=== PATIENT | female | born 1945 | race African-American/Black ===

== ENCOUNTER 2018-07-26 05:25 | Day surgery (SDC) | payer OTHER ==
[~2018-07-26 05:25] MED LIST: ceFAZolin SODIUM 1 GM VIAL IVPB ONE
[2018-07-26 06:29] VITALS: BMI 31.1
[2018-07-26] MEDS ORDERED: fentaNYL CITRATE 250 MCG/5 ML VIAL ONE (07:29)
[2018-07-26] MEDS ORDERED: SUCCINYLCHOLINE CHLORIDE 200 MG/10 ML VIAL ONE (07:30)
[2018-07-26] MEDS ORDERED: ROCURONIUM BROMIDE 50 MG/5 ML VIAL ONE (07:30)
[2018-07-26] MEDS ORDERED: MIDAZOLAM HCL 2 MG/2 ML SINGLE DOSE VIAL ONE (07:30)
[2018-07-26] MEDS ORDERED: PROPOFOL 20 ML ONE (07:30)
[2018-07-26] MEDS ORDERED: LIDOCAINE HCL/PF 2% SDV 5ML VIAL ONE (07:32)
[2018-07-26] MEDS ORDERED: DEXAMETHASONE SOD PHOSPHATE 4 MG/1 ML VIAL ONE (07:32)
[2018-07-26] MEDS ORDERED: IBUPROFEN 400 MG TABLET (FP) PO PRN (08:38)
[2018-07-26] MEDS ORDERED: ACETAMINOPHEN 325 MG TABLET (FP) PO PRN (08:38)
--- NOTE | 2018-07-26 08:39 | HP ---
History & Physical Update - History History: No Change - Physical Physical: No Change - Assessment Assessment: No Change - Plan Plan: No Change (No change in HP)
--- NOTE | 2018-07-26 08:40 | OP ---
Operative Note - Note: Operative Date: 07/26/18 Pre-Operative Diagnosis: Submucosal myoma Operation: Hysteroscopic myomectomy. Suction DC Findings: large amount of fibroids removed from cavity Post-Operative Diagnosis: Same as Pre-op Surgeon: Brittni Blancas Anesthesia: General Estimated Blood Loss (mls): 30 Operative Report Dictated: Yes
[2018-07-26] MEDS ORDERED: ONDANSETRON 4 MG/2 ML VIAL IVPUSH PRN (08:53)
[2018-07-26] MEDS ORDERED: PROMETHAZINE HCL 25 MG/1 ML VIAL IVPUSH PRN (08:53)
[2018-07-26] MEDS ORDERED: LACTATED RINGERS SOLUTION 1,000 ML IV SCH (09:00)
[2018-07-26 11:21] VITALS: TEMP 97.6
[2018-07-26 12:17] VITALS: BP 144/84; PULSE 88
--- NOTE | 2018-07-26 19:45 | OP ---
DATE OF OPERATION: 07/26/2018 PREOPERATIVE DIAGNOSES: Submucosal myoma, postmenopausal bleeding. OPERATION: Hysteroscopic myomectomy, suction dilatation and curettage. FINDINGS: Large amount of fibroids from the endometrial cavity. POSTOPERATIVE DIAGNOSES: Submucosal myoma, postmenopausal bleeding. SURGEON: Brittni Blancas MD CASHIER AND WAITER/WAITRESS: None. ANESTHESIA: General. NURSE FLOATING LABOR GANG SUPERVISOR: Jonathan Arcos CRNA PROCEDURE: Patient was taken to the operating room, placed in dorsal lithotomy position, prepped and draped in the usual sterile fashion. Timeout was performed in accordance with hospital regulation. Speculum was placed in the vagina. Anterior lip of the cervix was grasped with a single-tooth tenaculum. Cervix was then dilated to accommodate the operative hysteroscope. Visualization revealed large amounts of submucosal myomas. Myomas were approximately 3-4 myomas in the endometrial cavity. Large amounts of cutting of the myoma were done by the operative hysteroscope. Suction D&C was done. This was repeated approximately 4 times, and large amounts of submucosal myoma, approximately 3-4 cm of myoma, were removed. Endometrial cavity still appeared to have some myomas in there, but procedure was stopped, and the deficit was about 200 mL, and estimated blood loss was 30 mL. All instruments were then removed. A tear was noted on the cervix; so, a 0 Vicryl suture was then used to close off the laceration of the cervix from the tenaculum. Patient had tolerated the procedure well, was taken to recovery room in stable condition. Count was noted to be correct. BRITTNI BLANCAS M.D. [id number]
--- NOTE | 2018-07-27 18:13 | PATH ---
Surgical Pathology Report Patient Name: MOOK TAPIA [facility]. Rec. #: [id number] /Age/Gender: 1945 (Age: 72) / F Account: [id number] Location: [facility] SURGICAL Taken: 07/26/2018 Received: 07/26/2018 Reported: 07/27/2018 Physicians: Brittni Blancas M.D. Specimen(s) Received FIBROID Clinical History Fibroid (myoma) Final Diagnosis FIBROID, EXCISION: FRAGMENTS OF SMOOTH MUSCLE BUNDLES, CONSISTENT WITH LEIOMYOMA. SEPARATE ENDOMETRIAL POLYPS. FEW FRAGMENTS OF ATROPHIC ENDOMETRIUM. Electronically Signed Miguel Zamora M.D. Gross Description Received in formalin labeled "fibroid," is a 9 g, 7.5 x 4.0 x 0.6 cm aggregate of merlos, firm to rubbery portions of tissue, consistent with morcellated fibroids. The specimen is entirely submitted in 8 cassettes. /07/26/2018 saudi/07/26/2018
== END 2018-07-26 12:19 | disposition home or self-care (01) ==
LOC: JASU-SURG 05:25
PROVIDERS: ATTEND Obstetrics & Gynecology
PROC: 0UB98ZZ Excision of Uterus, Via Natural or Artificial Opening Endoscopic (ICD-10-PCS; principal; 2018-07-26 08:00)
PROC: 0UDB7ZX Extraction of Endometrium, Via Natural or Artificial Opening, Diagnostic (ICD-10-PCS; 2018-07-26 08:00)
PROC: 0UJD8ZZ Inspection of Uterus and Cervix, Via Natural or Artificial Opening Endoscopic (ICD-10-PCS; 2018-07-26 08:00)
DX: N95.0 Postmenopausal bleeding (principal); D25.0 Submucous leiomyoma of uterus
CPT/HCPCS: 86850; 86900; 86901; 88305-TC; 94760

== ENCOUNTER 2020-01-30 04:49 | Day surgery (SDC) | payer OTHER ==
[2020-01-27 16:08] VITALS: BMI 29.5
[2020-01-30] MEDS ORDERED: IBUPROFEN 800 MG/8 ML IJ IVPB PRN ×2 (05:40→10:01)
--- NOTE | 2020-01-30 05:40 | HP ---
History & Physical Update - History History: No Change - Physical Physical: No Change - Assessment Assessment: No Change - Plan Plan: No Change (No change in HP)
[2020-01-30] MEDS ORDERED: PHENAZOPYRIDINE HCL 100 MG TABLET (FP) PO STA (05:45)
[2020-01-30] MEDS ORDERED: CEFAZOLIN 2 GM in DEXTROSE 5%-WATER 100 ML IVPB ONE (06:20)
[2020-01-30] MEDS ORDERED: PHENAZOPYRIDINE HCL 100 MG TABLET (FP) PO ONE (06:20)
[2020-01-30] MEDS ORDERED: ceFAZolin SODIUM 1 GM VIAL ONE ×3 (06:48→17:55)
[2020-01-30] MEDS ORDERED: MIDAZOLAM HCL 2 MG/2 ML SINGLE DOSE VIAL ONE ×3 (07:10→07:20)
[2020-01-30] MEDS ORDERED: LIDOCAINE HCL/PF 2% SDV 5ML VIAL ONE (07:20)
[2020-01-30] MEDS ORDERED: SUCCINYLCHOLINE CHLORIDE 200 MG/10 ML SYRINGE ONE (07:20)
[2020-01-30] MEDS ORDERED: fentaNYL CITRATE 250 MCG/5 ML VIAL ONE (07:20)
[2020-01-30] MEDS ORDERED: ROCURONIUM BROMIDE 50 MG/5 ML SYRINGE ONE (07:20)
[2020-01-30] MEDS ORDERED: PROPOFOL 20 ML ONE (07:20)
--- NOTE | 2020-01-30 07:47 | HP ---
Satellite H - Chief Complaint Chief Complaint: Leiomyomatous uterus. abdominal pain. vaginal relaxation. History of Present Illness: 74 yo with leiomyomatous uterus and abdominal pain who desires hystectomy. pt with vaginal relaxation History Source: Patient Limitations to Obtaining History: No Limitations - Past Medical History Allergies/Adverse Reactions: Allergies Allergy/AdvReac Type Severity Reaction Status Date / Time No Known Drug Allergies Allergy Verified 01/27/20 16:08 ...: No ...: 4 ...Para: 1 Additional Medical History: Thyroid goiter. elevated cholesterol. Hx herpes - Current Medications Current Medications: Home Medications Medication Instructions Recorded Atorvastatin Calcium [Lipitor] 20 mg PO DAILY 07/26/18 Valacyclovir HCl [Valtrex] 500 mg PO DAILY 07/26/18 Citalopram Hydrobromide [Celexa -] 10 mg PO DAILY 01/27/20 Satellite Physical Exam - Physical Examination Vital Signs: Vital Signs Period Temp Pulse Resp BP Sys/Judge Pulse Ox Last 24 Hr 98.2 F 75 20 153/61 98 General Appearance: Well Nourished, Well Developed, Obese ENT: Clear Lung: Clear to auscultation Heart: Regular rate & rhythm Breasts: Soft, Non-Tender Abdomen: Soft, No tenderness Extremities: No edema Pelvic Exam: Within normal limits External Genitalia, Within normal limits Vagina, Within normal limits Cervix, Within normal limits [place], Other Uterus (enlarged) Neurological: Intact, Alert, Oriented Satellite Impression/Plan - Impression/Plan Impression: Leiomyomatous Uterus. abdominal pain. vaginal relaxation Operative Procedure: Laparoscopic robotic hysterectomy. bilateral salpingectomy. perineoplasty. vaginoplasty Date to be Performed: 01/30/20
[2020-01-30] MEDS ORDERED: ceFAZolin SODIUM 1 GM VIAL IVPB ONE (08:09)
[2020-01-30] MEDS ORDERED: NEOSTIGMINE METHYLSULFATE 0.5 MG/ML - 10 ML MDV ONE (09:25)
[2020-01-30] MEDS ORDERED: GLYCOPYRROLATE 0.2 MG/1 ML VIAL ONE (09:26)
[2020-01-30] MEDS ORDERED: DOCUSATE SODIUM 100 MG CAPSULE (FP) PO PRN (10:01)
[2020-01-30] MEDS ORDERED: ONDANSETRON 4 MG/2 ML VIAL IVPUSH PRN (10:01)
[2020-01-30] MEDS ORDERED: oxyCODONE HCL 5 MG TABLET PO PRN (10:01)
[2020-01-30] MEDS ORDERED: BISACODYL 5 MG TABLET.DR (FP) PO PRN (10:01)
[2020-01-30] MEDS ORDERED: ACETAMINOPHEN 325 MG TABLET (FP) PO PRN (10:01)
[2020-01-30] MEDS ORDERED: SIMETHICONE 80 MG TAB.CHEW (FP) PO PRN (10:01)
[2020-01-30] MEDS ORDERED: LORazepam 2 MG TABLET PO PRN (10:06)
--- NOTE | 2020-01-30 10:34 | OP ---
Operative Note - Note: Operative Date: 01/30/20 Pre-Operative Diagnosis: Fibroid uterus Operation: robotic laproscopic total hysterectomy, bilateral salpingectomy, vaginalplasty, and perineoplasty Post-Operative Diagnosis: Same as Pre-op Surgeon: Brittni Blancas Mechanical Development Engineer: Magdiel Baerd Anesthesiologist/FLOWER CHENILLER: Jonathan Arcos Anesthesia: General Estimated Blood Loss (mls): 40 Operative Report Dictated: Yes
--- NOTE | 2020-01-30 10:38 | SURG ---
Surgery Recreation Specialist Note Recreation Specialist: Magdiel Beard PA-C Date of Service: 01/30/20 Diagnosis: Fibroid Uterus Procedure: robotic laproscopic total hysterectomy, bilateral salpingectomy, vaginalplasty, and perineoplasty I was present for the entirety of the operative procedure. For further detail, please refer to operative report. Visit type - Case Type Case Type: Scheduled - Emergency Emergency Visit: No - New patient This patient is new to me today: Yes Date on this admission: 01/30/20 - Critical Care Critical Care patient: No
[2020-01-30] MEDS: LACTATED RINGERS SOLUTION 1,000 ML IV SCH ×2 (12:46→12:48)
[2020-01-30] MEDS ORDERED: DEXTROSE 5%-WATER 100 ML IVPB ONE ×2 (13:08→17:55)
[2020-01-30 13:11] LABS: HEMATOCRIT 42.4 % (32.4-45.2); HEMOGLOBIN 14.1 GM/dL (10.7-15.3); MCH 31.5 pg (25.7-33.7); MCHC 33.3 g/dl (32.0-36.0); MEAN CELL VOLUME 94.6 fl (80-96); MEAN PLT VOLUME 8.6 fl (7.5-11.1); PLATELET COUNT 222 K/MM3 (134-434); RBC 4.48 M/mm3 (3.60-5.2); RDW 13.2 % (11.6-15.6); WHITE BLOOD COUNT 10.6 K/mm3 (4.0-10.0)
[2020-01-30] MEDS: CEFAZOLIN 2 GM in DEXTROSE 5%-WATER 100 ML IVPB SCH ×2 (13:16→17:59)
[2020-01-30] MEDS: oxyCODONE HCL 5 MG TABLET PO PRN ×2 (13:27→18:03)
[2020-01-30] MEDS ORDERED: CEFAZOLIN 1 GM in DEXTROSE 5%-WATER - 50 ML IVPB SCH (18:00)
[2020-01-30 19:15] LABS: HEMATOCRIT 42.1 % (32.4-45.2); HEMOGLOBIN 13.7 GM/dL (10.7-15.3); MCH 30.8 pg (25.7-33.7); MCHC 32.6 g/dl (32.0-36.0); MEAN CELL VOLUME 94.5 fl (80-96); MEAN PLT VOLUME 9.2 fl (7.5-11.1); PLATELET COUNT 238 K/MM3 (134-434); RBC 4.45 M/mm3 (3.60-5.2); RDW 13.1 % (11.6-15.6)
[2020-01-30 19:48] LABS: BLOOD UREA NITROGEN 12.2 mg/dL (7-18); CREATININE 0.9 mg/dL (0.55-1.3); POTASSIUM 4.4 mmol/L (3.5-5.1)
[2020-01-31 06:03] VITALS: BP 140/62; PULSE 86; TEMP 98
--- NOTE | 2020-01-31 07:49 | PN ---
Progress Note (short form) - Note Progress Note: 74yo F s/p Robotic hysterectomy and vaginalplasty POD 1. Pt seen and examined at bedside. Pt states that she is feeling well and pain is well controlled. Pt is tolerating PO and urinating well. Pt denies fever, chills, n/v. Last Vital Signs Temp Pulse Resp BP Pulse Ox 98 F 86 20 140/62 99 01/31/20 06:01 01/31/20 06:01 01/31/20 06:01 01/31/20 06:01 01/30/20 12:49 CBC, BMP 01/30/20 18:30 01/30/20 18:30 PE; Gen: A&O x3 Resp: breathing comfortably Abd; soft, nondistended, mild diffuse tenderness, incisions clean with no erythema or discharge. Ext: no edema Problem List - Problems (1) S/P hysterectomy Assessment/Plan: Plan -pt appears to be doing well, will plan to discharge today -regular diet -pt should follow up with Dr. Blancas in 1 week in the office Pt discussed with Dr. Blancas who agrees with plan Code(s): Z90.710 - ACQUIRED ABSENCE OF BOTH CERVIX AND UTERUS
[2020-01-31] MEDS: oxyCODONE HCL 5 MG TABLET PO PRN (07:53)
[2020-01-31 08:25] LABS: HEMATOCRIT 37.2 % (32.4-45.2); HEMOGLOBIN 12.7 GM/dL (10.7-15.3); MCH 31.8 pg (25.7-33.7); MCHC 34.1 g/dl (32.0-36.0); MEAN CELL VOLUME 93.1 fl (80-96); MEAN PLT VOLUME 9.2 fl (7.5-11.1); PLATELET COUNT 214 K/MM3 (134-434); RDW 13.8 % (11.6-15.6); WHITE BLOOD COUNT 10.8 K/mm3 (4.0-10.0)
[2020-01-31 08:50] LABS: BLOOD UREA NITROGEN 10.8 mg/dL (7-18); CALCIUM 9.3 mg/dL (8.5-10.1); CREATININE 0.8 mg/dL (0.55-1.3); POTASSIUM 3.9 mmol/L (3.5-5.1)
[2020-01-31] MEDS ORDERED: ENOXAPARIN NA (PORCINE) 40 MG/0.4 ML DISP.SYRIN SQ SCH ×2 (10:00)
--- NOTE | 2020-01-31 16:20 | PATH ---
Surgical Pathology Report Patient Name: MOOK TAPIA [facility]. Rec. #: [id number] /Age/Gender: 1945 (Age: 74) / F Account: [id number] Location: AMBULATORY SURG Taken: 01/30/2020 Received: 01/30/2020 Reported: 01/31/2020 Physicians: Brittni Blancas M.D. Specimen(s) Received A: UTERUS AND CERVIX B: LEFT FALLOPIAN TUBE C: RIGHT FALLOPIAN TUBE D: VAGINAL Clinical History Fibroid uterus Final Diagnosis A. UTERUS AND CERVIX: HYSTERECTOMY: LEIOMYOMATA. WEAKLY PROLIFERATIVE/INACTIVE ENDOMETRIUM. CERVIX WITH ACUTE AND CHRONIC INFLAMMATION AND SQUAMOUS METAPLASIA. B. LEFT FALLOPIAN TUBE, SALPINGECTOMY: PORTION OF FALLOPIAN TUBE WITH NO SIGNIFICANT PATHOLOGIC CHANGE. C. RIGHT FALLOPIAN TUBE, SALPINGECTOMY: PORTION OF FALLOPIAN TUBE WITH PARATUBAL CYST. D. VAGINA TISSUE, EXCISION: PORTIONS OF SQUAMOUS MUCOSA WITH ACUTE AND CHRONIC INFLAMMATION. NEGATIVE FOR DYSPLASIA. Electronically Signed Miguel Zamora M.D. Gross Description A. Received in formalin labeled "uterus and cervix," is a 92 g uterus with an attached cervix and no attached adnexa. The specimen measures 7.3 cm from superior to inferior, 5.4 cm from left to right and 5.4 cm from anterior to posterior. The serosa is merlos-pink with focal bulging subserosal nodules. The attached cervix measures 2.5 cm in length and averages 2.0 cm in diameter. The ectocervix is merlos-pink, smooth and glistening. The endocervix is unremarkable. The endometrial cavity measures 3.4 cm in length and 1.8 cm from cornu to cornu. The endometrium is merlos-red and averages 0.1 cm in thickness. The myometrium displays abundant intramural nodules, measuring up to 2.4 cm in greatest dimension. The cut surface of the subserosal and intramural nodules is merlos and rubbery with whorled architecture. No areas of hemorrhage or necrosis are identified. The remaining myometrium is merlos-pink and averages 2.6 cm in thickness. Block Out Machine Operator sections are submitted in 9 cassettes as follows: 1-2-cervix; 2-0-fxizsdlnteszky; 7-subserosal nodules; 0-0-gustnawhjc nodules. B. Received in formalin labeled "left fallopian tube," is a 2.5 cm in length portion of fallopian tube. The outer surface is merlos-pink and smooth. Sectioning reveals an unremarkable lumen. Block Out Machine Operator sections are submitted in one cassette. C. Received in formalin labeled "right fallopian tube," is a 2 cm in length fimbriated fallopian tube. The outer surface is merlos-pink and smooth. Sectioning reveals an unremarkable lumen. Block Out Machine Operator sections are submitted in 2 cassettes as follows: 1-fimbria; 2-cross sections of fallopian tube. D. Received in formalin labeled "vaginal tissue," are 3 brown, unoriented portions of skin with underlying soft tissue ranging from 1.5 x 0.3 x 0.3 cm to 3.0 x 1.4 x 1.3 cm. Block Out Machine Operator sections are submitted in one cassette. [facility]
--- NOTE | 2020-02-03 14:12 | OP ---
DATE OF OPERATION: 01/30/2020 PREOPERATIVE DIAGNOSES: 1. Leiomyomatous uterus. 2. Pelvic pain. 3. Vaginal relaxation. POSTOPERATIVE DIAGNOSES: 1. Leiomyomatous uterus. 2. Pelvic pain. 3. Vaginal relaxation. OPERATION: Robotic laparoscopic total hysterectomy, bilateral salpingectomy, vaginal packing and perineorrhaphy. SURGEON: Brittni Blancas MD BUTTON CUTTER: Magdiel Beard ANESTHESIA: General. NURSE BIOINFORMATICS ANALYST: Jonathan Arcos REF-CRN ESTIMATED BLOOD LOSS: About 40 mL PROCEDURE: Patient was taken to the operating room and placed in the dorsal lithotomy position, prepped and draped in the usual sterile fashion. Timeout was performed in accordance with the hospital regulation. Speculum was placed in the vagina. Anterior lip of the cervix was grasped with the single-tooth tenaculum. The cervix was then dilated to accommodate the VCare device and was inserted into the endometrial cavity. All instruments were then removed and Castellon catheter was inserted. Attention was then drawn to the umbilicus where an 8 mm umbilical incision was made. Veress needle was inserted into the cavity. Approximately 3 to 4 L of CO2 was insufflated in the cavity. Veress needle was then removed and an 8 mm trocar was then inserted. Two trocars were placed on the left and one in the upper abdomen. A 5 mm incision was made under direct visualization, laparoscope and camera attached. Visualization showed the trocar in the upper abdomen going into the cavity without injury to the underlying viscera. The air cell cannula was then attached parallel to the umbilical incision on the left. An 8 mm incision was made and an 8 mm trocar was inserted under direct visualization. Two trocars were also placed on the right parallel to the umbilical incision about 10 cm apart. Trocars were inserted under direct visualization. The da Asmita robot was then side-docked to the patient's arm. The trocars were inserted onto the robot. Once trocars were inserted, instruments were then placed. Vessel sealer was placed on the left. Tenaculum was placed on the right. Once the instruments were placed visually, attention was then drawn to the console. Control of the console was then done. Tenaculum was then used to elevate the uterus to the right and the uteroovarian ligament was identified and clamped and cut. Tubes were bilaterally grasped and coagulated and cut. Uterine artery was identified and clamped and cut. The vesicouterine section was entered and the bladder was bluntly dissected out of the operative field. Cardinal ligament was coagulated and cut down and after the bladder had been bluntly dissected down, the ureter on the left was identified and found to have peristalsis. The same procedure was repeated on the right side. The uterus was tilted to the left side with the tenaculum and a vessel sealer was then used to clamp the uteroovarian ligament and uterine arteries and the round ligament down to the level of the cervix. The Endo Jerad was then used to enter the vagina and the vagina was then cut. The cervix was cut using Endo Jerad. Hemostasis was achieved. Uterus and cervix were then removed from the vagina, tubes were also removed. Both tubes were coagulated and cut and removed. Ovaries were noted to be normal. Peristalsis was seen on the right and the left side after the procedure was done and the 2-0 V-Loc suture was then entered into the abdominal cavity where the Solexant Asmita robot was used to use the 2-0 V-Loc continuous stitch to tie off the vagina. Hemostasis was achieved. The suture was removed. Hemostasis was achieved. All instruments were then removed. Trocars were then removed. The was removed from the abdomen. The incisions were then closed using 3-0 Vicryl in subcuticular fashion. Attention was then drawn to the vagina where was infiltrated into the vagina, as well as the perineum. The incision into the vagina was then done and also on the perineum and vaginoplasty was performed continuous and locking sutures and the vagina was reinforced with imbricating stitches and perineorrhaphy was done and hemostasis was achieved. All instruments were then removed. Patient tolerated the procedure well. Estimated blood loss 20 mL. The patient was taken to the recovery room in stable condition. Anabella [id number]
== END 2020-01-31 10:32 | disposition home or self-care (01) ==
LOC: JASUSAT 04:49 → J8W 12:37 → JASUSAT 01-31 10:32
PROVIDERS: ATTEND Obstetrics & Gynecology
PROC: 8E0W4CZ Robotic Assisted Procedure of Trunk Region, Percutaneous Endoscopic Approach (ICD-10-PCS; 2020-01-30)
PROC: 0UT9FZZ Resection of Uterus, Via Natural or Artificial Opening With Percutaneous Endoscopic Assistance (ICD-10-PCS; principal; 2020-01-30 07:30)
PROC: 0UT7FZZ Resection of Bilateral Fallopian Tubes, Via Natural or Artificial Opening With Percutaneous Endoscopic Assistance (ICD-10-PCS; 2020-01-30 07:30)
DX: D25.9 Leiomyoma of uterus, unspecified (principal); R10.2 Pelvic and perineal pain; N81.89 Other female genital prolapse
CPT/HCPCS: 58552; S2900; 36415; 80048; 85027; 86850; 86900; 86901; 88302-TC; 88304-TC; 88307-TC; 94760

== ENCOUNTER → 2021-08-22 | Day surgery (SDC) | payer OTHER | END | disposition home or self-care (01) | LOC: FMAMMOTONE 10:14 | PROVIDERS: ATTEND Internal Medicine | PROC: 0HBU3ZX Excision of Left Breast, Percutaneous Approach, Diagnostic (ICD-10-PCS; principal; 2021-08-22) | DX: D24.2 Benign neoplasm of left breast (principal); N60.32 Fibrosclerosis of left breast; N64.89 Other specified disorders of breast; R92.0 Mammographic microcalcification found on diagnostic imaging of breast | CPT/HCPCS: 19081; 76098-TC-FY; 87899; 88305-TC ==